=== PATIENT | female | born 1960 | race American Indian/Alaskan Native ===

== ENCOUNTER 2018-03-23 15:47 | Emergency (ER) | payer SELFPAY ==
[2018-03-23 16:28] VITALS: BP 124/73
--- NOTE | 2018-03-23 21:01 | Emergency Department Report ---
Chief Complaint: Extremity Injury, Lower Stated Complaint: SWOLLEN ANKLE Time Seen by Provider: 03/23/18 20:56 - HPI History of Present Illness: 57-year-old female comes in for complaint of right ankle swelling that has been going on for 20 years. Patient points at the last several months she's having more pain. Patient states that she wears compression stockings but is no longer relieving pain or swelling. Patient reports that she works at [employer] and is constantly on her feet. She denies any chest pain shortness of breathing or nausea no vomiting. - ROS Review of Systems: No chest pain no shortness of breathing noted unilateral swelling - Exam Vital Signs: Vital Signs 03/23/18 16:18 Temperature 98.7 F Pulse Rate 70 Respiratory 18 Rate Blood Pressure 124/73 O2 Sat by Pulse 97 Oximetry Physical Exam: Right leg and right ankle multiple varicose veins in small purplish veins. Non erythematous, edematous warm to touch, pulses intact. Able to ambulate and stand without difficulties. MSE screening note: Focused history and physical exam performed. Due to findings the following was ordered: Discussed patient that we will refer her to [facility] for further evaluation. As this is considered an N in the ED non-medical emergency. Since his been going on for 20 years and the last several months. ED Disposition for MSE Condition: Stable Referrals: PRIMARY CAREMD [Primary Care Provider] - 3-5 Days [facility] [Provider Group] - 3-5 Days GLORIA OLIVAS MD [Staff Physician] - 3-5 Days ARIVN WALTON MD [Staff Physician] - 3-5 Days ELLIOTT BRISCOE MD [Staff Physician] - 3-5 Days BREANNE MCGRAW MD [Staff Physician] - 3-5 Days
== END 2018-03-23 21:10 | disposition home or self-care (01) ==
LOC: ED 15:47
DX: M25.471 Effusion, right ankle (principal)
CPT/HCPCS: 99282

== ENCOUNTER 2018-04-04 20:39 | Emergency (ER) | payer SELFPAY ==
[2018-04-04 21:50] VITALS: BP 140/76
[2018-04-04] MEDS ORDERED: MOTRIN ONE ×2 (22:28)
[2018-04-04] MEDS ORDERED: MOTRIN PO ONE (22:31)
--- NOTE | 2018-04-04 23:28 | Emergency Department Report ---
HPI - General Chief Complaint: Head Injury Time Seen by Provider: 04/04/18 23:02 - [facility] HPI: Room 17 The patient is a 57-year-old female presenting with a chief complaint syncope. The patient states she was at work when she turned around and everything went slow motion that she lost consciousness. She states there was no report of seizure activity. The patient states she does not feel like she felt in the past when she's had seizures. Patient denies chest pain, shortness of breath, palpitations or nausea. Patient denies pain of any type. Patient denies any history of fever. Location: Central nervous system Duration: [See above] Quality: [See above] Severity: Moderate Modifying factors: [see above] Context: [see above] Mode of transportation: [not driving] ED Past Medical Hx - Past Medical History Previous Medical History?: Yes Hx Seizures: Yes - Surgical History Additional Surgical History: Brain Surgery for seizures - Family History Family history: no significant - Social History Smoking Status: Never Smoker Substance Use Type: None (denies illicit drug use) ED Review of Systems ROS: Stated complaint: AMS Other details as noted in HPI Constitutional: denies: fever Eyes: denies: eye pain ENT: denies: throat pain Respiratory: denies: shortness of breath Cardiovascular: denies: chest pain, palpitations Gastrointestinal: denies: abdominal pain, nausea Genitourinary: denies: dysuria Musculoskeletal: denies: back pain Neurological: denies: headache Physical Exam - Physical Exam Vital Signs: Vital Signs 04/04/18 21:35 Temperature 97.8 F Pulse Rate 88 Respiratory 17 Rate Blood Pressure 140/76 O2 Sat by Pulse 99 Oximetry Physical Exam: GENERAL: The patient is well-developed well-nourished female lying on stretcher not appearing to be in acute distress. [] HEENT: Normocephalic. Atraumatic. Extraocular motions are intact. Patient has moist mucous membranes. NECK: Supple. Trachea midline CHEST/LUNGS: Clear to auscultation. There is no respiratory distress noted. HEART/CARDIOVASCULAR: Regular. There is no tachycardia. There is no gallop rub or murmur. ABDOMEN: Abdomen is soft, nontender. Patient has normal bowel sounds. There is no abdominal distention. SKIN: There is no rash. There is no edema. There is no diaphoresis. NEURO: The patient is awake, alert, and oriented. The patient is cooperative. The patient has no focal neurologic deficits. The patient has normal speech. Cranial nerves II through XII grossly intact, no drift. MUSCULOSKELETAL:There is no evidence of acute injury. NIHSS= 0 LOC a. Alert= 0 Not alert but arousable to minor stimuli=1 Not alert requires repeated or strong stimuli to move= 2 Responds only reflex motor or unresponsive=3 b. asks month and age answers both correctly= 0 answers one correctly= 1 answers neither correctly= 2 Best Gaze normal= 0 abnormal in one or both but forced deviation or total paresis absent= 1 forced deviation or total gaze paresis= 2 Visual no visual loss= 0 partial hemianopia= 1 complete hemianopia= 2 bilateral hemianopia= 3 Facial Palsy normal= 0 minor paralysis= 1 partial paralysis= 2 complete paralysis= 3 Motor Arm no drift= 0 drift before 10 secs but doesnt hit bed= 1 some effort against gravity= 2 no effort against gravity= 3 no movement= 4 Motor leg no drift= 0 drift before 5 secs but doesnt hit bed= 1 drifts to bed before 5 secs= 2 no effort against gravity= 3 no movement= 4 Limb ataxia absent=0 present in one limb= 1 present in two limbs= 2 Sensory normal= 0 mild sensory loss= 1 severe (unaware of being touched)= 2 Best language mild/some loss of fluency= 1 severe= 2 mute= 3 Dysarthria normal= 0 slurs some words= 1 severe/unintelligible= 2 Extinction and Inattention no abnormality= 0 visual, tactile, auditory or personal inattention= 1 profound (doesnt recognize own hand or orients to only one side= 2 ED Course Vital Signs 04/04/18 21:35 Temperature 97.8 F Pulse Rate 88 Respiratory 17 Rate Blood Pressure 140/76 O2 Sat by Pulse 99 Oximetry ED Medical Decision Making - Medical Decision Making I discussed with the patient at length my concern for her syncopal episode. I explained that there are some causes of syncope there are dangers are not always revealed in the emergency department. I explained that although like to work up her syncope and emergency department but ultimately admit her to the hospital for observation. I explained the risk of increased morbidity and/or mortality should she leave the hospital AGAINST MEDICAL ADVICE. The patient verbalizes understanding and states that she does not wish to be admitted or obtain a workup in the emergency department. The patient states she just wants to go home. Patient is a and O 4 - Differential Diagnosis syncope, dysrhythmia, ACS, PE, ICH, CVA, TIA Critical care attestation.: If time is entered above; I have spent that time in minutes in the direct care of this critically ill patient, excluding procedure time. ED Disposition Clinical Impression: Syncope Disposition: DC-07 LEFT AGAINST MED ADVICE Is pt being admited?: No Does the pt Need Aspirin: No Condition: Undetermined Instructions: Syncope (ED) Referrals: PRIMARY CARE, [Primary Care Provider] - 3-5 Days Time of Disposition: 23:28 (patient leaving AMA)
== END 2018-04-04 23:37 | disposition left against medical advice (07) ==
LOC: ED 20:39
DX: R55 Syncope and collapse (principal); G40.909 Epilepsy, unspecified, not intractable, without status epilepticus
CPT/HCPCS: 99283